=== PATIENT | male | born 1995 | race Caucasian/White ===

== ENCOUNTER 2025-09-14 20:32 | Emergency (ER) | payer OTHER, SELFPAY ==
[2025-09-14 20:33] VITALS: BP 128/77
[2025-09-14] MEDS: TYLENOL 650 MG PO (20:40)
[2025-09-14 21:00] LABS: COVID-19 Antigen Positive (Negative)
--- NOTE | 2025-09-14 22:44 | ED.GENMED ---
History of Present Illness
General
Chief Complaint: Fever
Source: patient
Exam Limitations: none
Time Seen by Provider: 09/14/25 22:23
Nursing documentation reviewed up to this point in time: agreed with
History of Present Illness
History of Present Illness:
Note:
CHIEF COMPLAINT(S)
Fever and hallucinations.
HISTORY OF PRESENT ILLNESS
The patient is a 30-year-old male presenting with fever and hallucinations. The patient reports having tested positive for COVID-19, with no history of vaccination for the current year. He mentions experiencing a high fever that led to
hallucinations, described as 'seeing things.' The symptoms started recently, but the exact duration is not specified. He also reports muscle tightness in the legs and a mild cough. The patient has been able to ingest liquids and urinate without
pain, although he needed IV fluids provided by EMS en route to the facility. There is no indication of painful urination or severe cough. The patients occupation was mentioned as working in a [employer] and he acknowledges needing a few days off
due to symptoms, with a return to work advised four days post-fever.
PHYSICAL EXAM
General: Alert, no acute distress.
Skin: Warm, dry.
Head: Normocephalic, atraumatic.
Neck: Supple, trachea midline.
Eye, Ears, Nose, Mouth, and Throat: Oral mucosa moist.
Cardiovascular: Normal peripheral perfusion, no edema.
Respiratory: Respirations are non-labored.
Gastrointestinal: Abdomen nondistended.
Back: Normal range of motion, normal alignment.
Musculoskeletal: Normal range of motion, normal strength.
Neurological: Alert and oriented to person, place, time, and situation, no focal neurological deficit observed.
Psychiatric: Cooperative, appropriate mood and affect.
PLAN
1. Provide one liter of intravenous fluids for hydration.
2. Instruct the patient to use acetaminophen or ibuprofen to manage the fever.
3. Advise the patient to avoid work until four days after the fever resolves.
4. Ensure the patient understands infection control practices at home, including regular handwashing, wearing masks, and avoiding sharing personal items.
5. Inform the patient to return to the facility if unable to maintain adequate fluid intake.
6. No prescription medication is deemed necessary at this time.
DIFFERENTIAL DIAGNOSIS
The Differential Diagnosis includes, in no particular order and is not limited to:
1. COVID-19 infection
2. Influenza
3. Viral pneumonia
4. Bacterial pneumonia
5. Dehydration
6. Heat exhaustion
7. Drug-induced fever
8. Central nervous system infection
9. Acute stress reaction
10. Hyperthyroidism
Disposition:
SUMMARY OF ENCOUNTER
The patient, a 30-year-old male, presented to the emergency department with fever and hallucinations after testing positive for COVID-19. He has not been vaccinated for COVID-19 in the current year. His symptoms include a high fever leading to
hallucinations, muscle tightness in the legs, and mild cough. He required IV fluids en route to the facility. The physical exam and vitals were stable, showing no acute distress.
DISPOSITION
Discharge
ASSESSMENT
The patient is primarily suffering from a COVID-19 infection presenting with fever and hallucinations likely due to high fever.
PLAN
1. Provide one liter of intravenous fluids for hydration.
2. Instruct the patient to use acetaminophen or ibuprofen to manage the fever.
3. Advise the patient to avoid work until four days after the fever resolves.
4. Ensure the patient understands infection control practices at home, including regular handwashing, wearing masks, and avoiding sharing personal items.
5. Inform the patient to return to the facility if unable to maintain adequate fluid intake.
PATIENT EDUCATION AND COUNSELING
Discussed the importance of hydration, proper fever management with acetaminophen or ibuprofen, and infection control practices at home. The patient was advised to return to the facility if unable to maintain adequate fluid intake.
FOLLOW-UP INSTRUCTIONS
The patient should arrange to be off work until four days post-fever and to follow up with their primary care physician for ongoing care related to COVID-19.
MEDICATION RECONCILIATION
Acetaminophen (or ibuprofen) for fever management.
MEDICAL DECISION MAKING
- Number and Complexity of Problems Addressed:
COVID-19 infection leading to fever and hallucinations.
- Data:
No specific lab tests or imaging were mentioned as reviewed or ordered within the given transcript.
- Risk:
Consideration of Admission/Observation: Escalation of care including admission/observation was considered given the complexity and risk of the patients presenting complaint, exam findings, and/or their underlying comorbidities. However, ultimately,
I feel the patient is safe for outpatient management with close follow-up. Reasoning: Work-up is reassuring, does not reveal any acute life/organ-threatening processes, patients symptoms well controlled upon reevaluation, reexamination is
reassuring, vitals are stable, patient agreeable with discharge, reliable for follow-up.
DIAGNOSIS
1. COVID-19 infection (U07.1)
2. Fever (R50.9)
Past History
Past History
ED Past Medical History: None
ED Past Surgical History: None
Social History
Tobacco: Non-smoker
Personal: Single
Living: with family
Employment: Student
Review of Systems
Review of Systems
Allergies reviewed?: Yes
Other source history: family
All Other Systems: ROS reviewed and negative except as documented in HPI and ROS
Constitutional: Reports fever, fatigue and sleep disturbance
EENT: Reports no symptoms
Respiratory: Reports cough
Cardiac: Reports no symptoms
ABD/GI: Reports no symptoms
: Reports no symptoms
Musculoskeletal: Reports no symptoms
Skin: Reports no symptoms
Neurological: Reports no symptoms
Endocrine: Reports no symptoms
Hematologic/Lymphatic: Reports no symptoms
Psychiatric: Reports no symptoms
Phy Exam
Physical Exam
Physical Exam:
.
Course
Orders/Labs/Results
Orders:
Orders
09/14/25 20:36
COVID-19 Antigen Urgent
Source: Nasal Swab
Influenza A+B Rapid Molecular Urgent
G[facility] Source: Nasal Swab
Specimen Description:
Acetaminophen [Tylenol] 650 mg PO NOW STA
09/14/25 22:40
CR Chest - 2 Views Urgent
Comment:
Reason For Exam: covid (+) cough
Abnormal Lab Results
09/14/25
20:36
SARS-CoV-2 Antigen Positive A
(Negative)
Vital Signs
Initial and Last Documented VS:
Initial Vital Signs
Temp Pulse Resp BP Pulse Ox
102.4 F H 103 20 128/77 97
09/14/25 20:33 09/14/25 20:33 09/14/25 20:33 09/14/25 20:33 09/14/25 20:33
Last Documented Vital Signs
Temp Pulse Resp BP Pulse Ox
102.4 F H 103 20 118/68 97
09/14/25 20:33 09/14/25 20:33 09/14/25 20:33 09/14/25 23:29 09/14/25 22:47
*Pulse Oximetry
SaO2: 97
Oxygen Mode of Delivery: Room air
Patient hypoxic: no
*Critical Care Note
Total Time (30-74mins, 75-104mins- exclusive of procedures): Not Applicable
ED Attending Note
-
Portions of this chart may have been created with voice recognition software.� Occasional wrong word or��sound alike� substitutions may have occurred due to the inherent limitations of voice recognition software.
Discharge Plan
Departure
Patient Disposition: Home (Routine Discharge)
Date of Disposition: 09/14/25
Time of Disposition: 23:03
Patient with high blood pressure during this ER visit?: Yes
Condition: Fair
Discharge Problem:
COVID-19
Instructions: Fever, Adult (DC), Coronavirus Home Quarantine, BLOOD PRESSURE
Prescriptions:
No Action
naloxone [Narcan] 4 MG spray,non-aerosol
4 mg intranasal DIRECTED Qty: 2 0RF
ondansetron 4 MG tablet,disintegrating
4 mg PO Q8H Qty: 7 1RF
clonidine HCl 0.1 MG tablet
0.1 mg PO Q6HPRN PRN (Reason: withdrawal symptoms) Qty: 20 0RF
Referrals:
UNKNOWN - PT DOES,NOT KNOW [Family Provider]
Stand Alone Forms: Return to Work
Activity Restrictions/Additional Instructions:
Thank You for choosing [facility].
It was a pleasure meeting you and taking part in your care. We hope for your continued healing and wellness.
Please read discharge instructions in their entirety. However, they are for general education and may not describe your exact diagnosis at discharge. Information on your ER visit and medical conditions were discussed with you along with appropriate
follow up information...
If indicated, please take your medications as instructed and indicated on discharge paperwork.
Please schedule a follow up appointment as directed. Call to schedule an appointment
Please return to the emergency department with ANY change in, persisting, or worsening of symptoms. If any of your symptoms do not improve, or persist, or become more severe within 6-12 hours, please return to the emergency department for further
care.
Please return to the emergency department if you develop a headache, neck pain/stiffness, fever greater than 100.4F, chest pain, shortness of breath, persistent nausea, vomiting, slurred speech, difficulty walking, numbness/tingling, weakness, signs
of infection or any other symptoms that are worrisome to you.
If you have any questions or concerns please do not hesitate to call the Hospital at .
Interventions
Interventions:
*General Assessment Last Done: 09/14/25 20:33
*Neglect/Abuse Screening Last Done: 09/14/25 23:29
*ED COVID-19 Vaccine History Last Done: 09/14/25 23:29
*ED Influenza Vaccine History Last Done: 09/14/25 23:29
[facility] Fall Risk Assessment Tool Last Done: 09/14/25 20:33
*Risk Screen - Suicide (C-SSRS) Last Done: 09/14/25 23:29
*Nursing Disposition Last Done: 09/14/25 23:29
ED- Neurological Assessment Last Done: 09/14/25 23:29
ED-Skin Assessment Last Done: 09/14/25 23:29
Discharge Date and Time
Discharge Date/Time: 09/14/25 23:46
Print Language: UGANDAN
[2025-09-14 23:29] VITALS: BP 118/68
== END 2025-09-14 23:46 | disposition home or self-care (01) ==
LOC: EMR 20:32
PROVIDERS: Emergency Medicine; EMERGENCY PHYSICIAN Student in an Organized Health Care Education/Training Program
DX: U07.1 COVID-19 (principal); R44.2 Other hallucinations
CPT/HCPCS: 99284; 71046; 87502; 87811